=== PATIENT | female | born 1985 | race African-American/Black ===

== ENCOUNTER 2019-06-30 09:15 | Emergency (ER) | payer MEDICAID ==
[~2019-06-30] VITALS: Ht 162.6 cm; Wt 86.0 kg
[2019-06-30 09:35] VITALS: BP 140/94
[2019-06-30] MEDS ORDERED: IPRATROPIUM/ALBUTEROL 0.5-3(2.5)MG/3ML NEB HHN ONE (11:15)
[2019-06-30] MEDS ORDERED: IPRATROPIUM/ALBUTEROL 0.5-3(2.5)MG/3ML NEB ONE ×2 (11:20→12:17)
[2019-06-30] MEDS ORDERED: ALBUTEROL 6.7GM HFA INHALER ORI ONE (13:15)
[2019-06-30] MEDS ORDERED: PREDNISONE 20MG TABLET PO ONE (13:15)
== END 2019-06-30 14:22 | disposition home or self-care (01) ==
LOC: ER 09:15
DX: J45.901 Unspecified asthma with (acute) exacerbation (principal); J02.9 Acute pharyngitis, unspecified; I10 Essential (primary) hypertension; J30.9 Allergic rhinitis, unspecified; Z72.0 Tobacco use
CPT/HCPCS: 71045; 94640; 99283; J7512; J7610; Z7610

== ENCOUNTER 2021-08-06 09:41 | Emergency (ER) | payer MEDICAID ==
[~2021-08-06] VITALS: Ht 165.1 cm; Wt 80.0 kg
[~2021-08-06 09:41] MED LIST: ALBU18HF2 IH; AZIT250T12 MT; BENZ100C86 PO; DEXA6TAB MT; DILT300C35 MT; METF-874 MT
[2021-08-06] MEDS ORDERED: NAPR-681 PO (10:39)
[2021-08-06 10:55] VITALS: BP 152/92
== END 2021-08-06 10:55 | disposition home or self-care (01) ==
LOC: ER 09:45
DX: R51.9 Headache, unspecified (principal); I10 Essential (primary) hypertension
CPT/HCPCS: 99282; Z7610

== ENCOUNTER 2022-04-20 09:14 | Emergency (ER) | payer MEDICAID ==
[~2022-04-20] VITALS: Ht 167.6 cm; Wt 78.0 kg
[~2022-04-20 09:14] MED LIST changes: +AMLO10TA80 PO; -AZIT250T12 MT; +CETI-89 PO; -DEXA6TAB MT; -DILT300C35 MT; +FAMO20TA8 MT; +FLUT1DIS2 INH; +GUAI600T44 PO; +MONT10TA21 PO; +P20 MT; +RAMI10CA68 PO
[2022-04-20] MEDS ORDERED: ALBUTEROL (0.083%) 2.5MG/3ML NEB HHN STA (11:20)
[2022-04-20] MEDS ORDERED: IPRATROPIUM BROMIDE (0.02%) 0.5MG/2.5ML NEB HHN STA (11:20)
[2022-04-20] MEDS ORDERED: CETI10TA11 MT (12:39)
[2022-04-20] MEDS ORDERED: ALBU6.7H3 INH (12:39)
[2022-04-20] MEDS ORDERED: FLUT1DIS2 INH (12:39)
[2022-04-20] MEDS ORDERED: ACETAMINOPHEN 325MG TABLET PO ONE (12:45)
[2022-04-20] MEDS ORDERED: DEXAMETHASONE 4MG TABLET PO ONE (12:45)
[2022-04-20 13:25] VITALS: BP 137/67
== END 2022-04-20 13:27 | disposition home or self-care (01) ==
LOC: ER 09:14
DX: J45.901 Unspecified asthma with (acute) exacerbation (principal); J06.9 Acute upper respiratory infection, unspecified; Z20.822 Contact with and (suspected) exposure to COVID-19; I10 Essential (primary) hypertension
CPT/HCPCS: 87426; 87804; 94640; 99283; C9803; J8540; Z7610

== ENCOUNTER 2022-11-13 13:36 | Emergency (ER) | payer MEDICAID ==
[~2022-11-13] VITALS: Ht 165.1 cm; Wt 81.8 kg
[~2022-11-13 13:36] MED LIST changes: +ALBU6.7H3 INH; +CETI10TA11 MT; +MONT-46 PO; -MONT10TA21 PO
[2022-11-13] MEDS ORDERED: PREDNISONE 20MG TABLET PO STA (14:19)
[2022-11-13] MEDS ORDERED: ALBUTEROL (0.083%) 2.5MG/3ML NEB HHN STA (14:19)
[2022-11-13 14:32] LABS: CLARITY URINE CLOUDY (CLEAR); COLOR URINE YELLOW (YELLOW); KETONES URINE NEGATIVE (NEGATIVE); LEUKOCYTE ESTERASE URINE NEGATIVE (NEGATIVE); NITRITE URINE NEGATIVE (NEGATIVE); OCCULT BLOOD URINE NEGATIVE (NEGATIVE); PH URINE 7.5 (4.5-8.0); PROTEIN URINE 3+ (NEGATIVE); SPECIFIC GRAVITY URINE 1.023 (1.005-1.030); UROBILINOGEN URINE 0.2 E.U./dL (0.2-1.0)
[2022-11-13 14:39] LABS: BASOPHILS % 0.5 % (0.0-2.0); EOSINOPHILS % 1.9 % (0.0-5.0); HEMATOCRIT. 42.7 % (36.0-48.0); LYMPHOCYTES % 31.6 % (20.0-50.0); MEAN CORPUSCULAR HEMOGLOBIN 25.6 pg (28.0-32.0); MEAN CORPUSCULAR VOLUME 77.8 fL (81.0-99.0); MEAN PLATELET VOLUME 7.7 fl (7.4-10.4); MONOCYTES % 7.7 % (2.0-8.0); NEUTROPHILS % 58.3 % (40.0-76.0); PLATELET 375 x1000/uL (130-400); RED BLOOD CELL COUNT 5.49 mill/uL (4.2-5.4); RED CELL DISTRIBUTION WIDTH 15.3 % (11.6-14.6)
[2022-11-13 14:44] LABS: CHLORIDE 110 mEq/L (98-107)
[2022-11-13 14:53] LABS: PROTHROMBIN TIME 10.3 sec (9.6-11.0)
[2022-11-13 16:31] VITALS: BP 160/104; TEMP 98.7
[2022-11-13] MEDS ORDERED: ALBU6.7H3 INH (18:33)
[2022-11-13] MEDS ORDERED: P50 MT (18:33)
[2022-11-13] MEDS ORDERED: ALBU05 NEB (18:33)
[2022-11-13] MEDS ORDERED: PREDNISONE 20MG TABLET PO NR (18:45)
[2022-11-13] MEDS ORDERED: ALBUTEROL (0.083%) 2.5MG/3ML NEB HHN ONE (18:45)
[2022-11-13 18:47] VITALS: PULSE 79; RESP 15; O2SAT 95
== END 2022-11-13 19:24 | disposition home or self-care (01) ==
LOC: ER 13:36
DX: R06.02 Shortness of breath (principal); J45.909 Unspecified asthma, uncomplicated; E11.9 Type 2 diabetes mellitus without complications; I10 Essential (primary) hypertension; F12.10 Cannabis abuse, uncomplicated
CPT/HCPCS: 80053; 81003; 81025; 85025; 85610; 36415; 71045; 94640; 93005; 99291; J7512; Z7610 ×3